=== PATIENT | male | born 1950 | race Caucasian/White ===

== ENCOUNTER 2016-12-04 15:08 | Emergency (ER) | payer BC, MEDICARE ==
[~2016-12-04] VITALS: Ht 188 cm; Wt 129.3 kg
[2016-12-04] MEDS ORDERED: TETANUS,DIPTH,PERTUSS P/F (BOOSTRIX) 0.5 ML VIAL IM STA (15:33)
--- NOTE | 2016-12-04 15:39 | ED General ---
General Chief Complaint: Laceration Stated Complaint: L HAND FINGER LAC Nursing Triage Note: PT STATES HE WAS CUTTING CANTELOPE AND CUT THE TIP OF HIS L MIDDLE AND RING FINER Nursing Sepsis Screen: No Definite Risk Source of Information: Patient Exam Limitations: No Limitations History of Present Illness Time Seen by Provider: 15:26 Initial Comments 66-year-old male patient presents to the emergency Department with reports of cutting his left third and fourth fingers with a knife while cutting cantaloupe. Location Injury Occurred: home Timing/Duration: 1/2 Hour Allergies and Home Medications Allergies Coded Allergies: Acetaminophen (Unverified Adverse Reaction, Unknown, 03/11/11) oxycodone HCl (Unverified Adverse Reaction, Unknown, 03/11/11) Uncoded Allergies: DARVOCET (Adverse Reaction, Unknown, 03/11/11) Constitutional: no symptoms reported Musculoskeletal: No joint pain, No joint swelling Skin: see HPI Psychiatric/Neurological: Denies Numbness, Denies Paresthesia, Denies Tingling , Denies Weakness All Other Systems Reviewed Negative Unless Noted: Yes (Negative excepted noted.) Past Qnclbuh-Lvflpi-Cnhpgk Hx Patient Social History Alcohol Use: Denies Use Recreational Drug Use: No Smoking Status: Never a Smoker Recent Foreign Travel: No Contact w/Someone Who Travel: No Recent Infectious Disease Expo: No Recent Hopitalizations: No Immunizations Up To Date Tetanus Booster (TDap): More than 5yrs Seasonal Allergies Seasonal Allergies: No Surgeries HX Surgeries: Yes Surgeries: Orthopedic Respiratory Hx Respiratory Disorders: No Cardiovascular Hx Cardiac Disorders: No Neurological Hx Neurological Disorders: No Gastrointestinal Hx Gastrointestinal Disorders: No Musculoskeletal Hx Musculoskeletal Disorders: No HEENT HX ENT Disorders: Yes HEENT Disorders: Glaucoma Reviewed Nursing Assessment Reviewed/Agree w Nursing PMH: Yes Family Medical History Significant Family History: No Pertinent Family Hx Physical Exam Vital Signs Vital Sign - Last 12Hours 12/04/16 12/04/16 15:24 16:02 Temp 98.1 Pulse 118 Resp 18 B/P (MAP) 149/100 Pulse Ox 99 Capillary Refill : Less Than 3 Seconds General Appearance: No Apparent Distress, WD/WN Cardiovascular: Normal Peripheral Pulses Extremity: Normal Capillary Refill, Normal Range of Motion, Non Tender, Other ( superficial skin avulsion of the left 3rd and 4th distal hogan fingers. small arterial bleed noted of the left distal 3rd finger.) Neurologic/Psychiatric: Alert, Oriented x3, No Motor/Sensory Deficits, Normal Mood/Affect Skin: Normal Color, Warm/Dry, Other (superficial skin avulsion of the left 3rd and 4th distal hogan fingers. small arterial bleed noted of the left distal 3rd finger.) Progress/Results/Core Measures Results/Orders My Orders Orders - MACRINA NAVAS Dipht,Pertuss(Acell),Tet Adult (Boostrix (12/04/16 15:33) Vital Signs/I&O Vital Sign - Last 12Hours 12/04/16 12/04/16 15:24 16:02 Temp 98.1 98.1 Pulse 118 118 Resp 18 18 B/P (MAP) 149/100 Pulse Ox 99 Blood Pressure Mean: 116 Departure Communication Progress Notes Patient seen and evaluated. Small flap of skin debrided from the left fourth finger. Left third finger cauterized with silver nitrate to obtain hemostasis. Finger dressed with Triple Antibiotic ointment, Adaptic, 2 x 2 gauze, and tube gauze. Impression Impression: Primary Impression: Avulsion of skin of finger Qualified Codes: S61.209A - Unspecified open wound of unspecified finger without damage to nail, initial encounter Additional Impression: Avulsion of skin of middle finger Qualified Codes: S61.208A - Unspecified open wound of other finger without damage to nail, initial encounter Disposition: 01 HOME, SELF-CARE Condition: Improved Departure-Patient Inst. Decision time for Depature: 15:37 Referrals: AMADEO BEARD MD (PCP/Family) Primary Care Physician Patient Instructions: SKIN AVULSION Add. Discharge Instructions: All discharge instructions reviewed with patient and/or family. Voiced understanding. Continue usual home medications. Ibuprofen 800 mg by mouth every 8 hours as needed for pain. Elevate the left hand on pillows. Ice pack for 20 minute intervals as needed. Change dressing tomorrow morning. If needed you may use peroxide to loosen the dressing. Immediately rinse the hand with soap and water. Shower with antibacterial soap. Apply triple antibiotic ointment twice daily for 3 days and cover with a bandage. Follow-up with Dr. Beard is outpatient for a recheck if needed. Return to the emergency department for worsened pain, redness, fever, drainage, or any other concerns. MACRINA NAVAS Dec 04, 2016 15:39
[2016-12-04 16:02] VITALS: BP 149/100
--- OUTSIDE RECORDS SUMMARY | 2016-12-06 11:55 | XMS REPORT | Continuity of Care Document ---
Author Author [facility] Organization [facility] Address Unknown Phone Unavailable Allergies Active Description Code Type Severity Reaction Onset Reported/Identified Relationship to Patient Clinical Status Yes acetaminophen [id number] Drug Allergy Unknown N/A 03/11/2011 Yes DARVOCET DARVOCET Unknown N/A 03/11/2011 Yes oxycodone HCl [id number] Drug Allergy Unknown N/A 03/11/2011 Medications Problems Date Dx Coded Attending Type Code Diagnosis Diagnosed By 06/23/2014 AMADEO JAEGER MD R Ot 562.10 06/23/2014 MIL MARTIN, AMADEO R Ot 789.03 06/26/2014 AMADEO JAEGER MD R Ot 562.10 06/26/2014 MIL MARTIN AMADEO R Ot 789.03 06/26/2014 MIL MARTIN, AMADEO R Ot 781.99 06/26/2014 AMADEO JAEGER MD R Ot 786.2 07/17/2014 AMADEO JAEGER MD R Ot 781.99 07/17/2014 MIL MARTIN AMADEO R Ot 786.2 Procedures Results Encounters ACCT No. Visit Date/Time Discharge Status Pt. Type Provider Facility Loc./Unit Complaint [id number] 06/23/2014 14:15:00 2014 23:59:59 CLS Outpatient AMADEO JAEGER MD [facility] RAD [id number] 09/24/2013 08:53:00 2013 23:59:59 CLS Outpatient AMADEO JAEGER MD [facility] RAD
== END 2016-12-04 16:11 | disposition home or self-care (01) ==
LOC: EDUNIT# 15:08 → ER 15:10
DX: S61.213A Laceration without foreign body of left middle finger without damage to nail, initial encounter; S61.225A Laceration with foreign body of left ring finger without damage to nail, initial encounter; Z98.890 Other specified postprocedural states; W26.9XXA Contact with unspecified sharp object(s), initial encounter
CPT/HCPCS: 90471; 90715

== ENCOUNTER 2016-12-06 11:49 | Emergency (ER) | payer BC ==
[~2016-12-06] VITALS: Ht 188 cm; Wt 129.3 kg
--- NOTE | 2016-12-06 12:14 | ED Suture Removal/Wound Check ---
Suture/Wound Re-check Suture Removal/Wound Recheck : Progress Time seen my provider: 1215 Patient presents to the emergency department for wound recheck as instructed. Patient denies any new complaints or needs. Physical Exam Vital Signs Vital Sign - Last 12Hours 12/06/16 11:55 Pulse 77 Resp 18 B/P (MAP) 157/106 Pulse Ox 96 Capillary Refill : General Appearance: WD/WN, no apparent distress Extremities: normal range of motion, other (good granulation noted of the right third and fourth distal finger wounds without evidence of erythema, warmth , or drainage. No evidence of swelling. soft tissue tenderness noted.) Skin: normal color, warm/dry, other (good granulation noted of the right third and fourth distal finger wounds without evidence of erythema, warmth, or drainage. No evidence of swelling.) Skin Problem Location: other (3rd and 4th fingers) Departure Communication Progress Notes Patient seen and evaluated. Continue all usual home medications. Discharge to home. Impression Impression: Primary Impression: Encounter for wound re-check Disposition: HOME, SELF-CARE Condition: Improved Departure-Patient Inst. Decision time for Depature: 12:31 Referrals: AMADEO JAEGER MD (PCP/Family) Primary Care Physician Patient Instructions: Wound Care (DC) Add. Discharge Instructions: All discharge instructions reviewed with patient and/or family. Voiced understanding. Continue usual home medications. Shower with antibacterial soap. Apply triple antibiotic ointment twice daily for 3 days. Finger splints as instructed. Follow-up with Dr. Jaeger as an outpatient if needed. Return to the emergency department for increased pain, redness, drainage, fever, or any other concerns. MACRINA NAVAS Dec 06, 2016 12:14
[2016-12-06 12:30] VITALS: BP 157/106
--- OUTSIDE RECORDS SUMMARY | 2016-12-06 20:29 | XMS REPORT | Continuity of Care Document ---
Author Author [facility] Organization [facility] Address Unknown Phone Unavailable Allergies Active Description Code Type Severity Reaction Onset Reported/Identified Relationship to Patient Clinical Status Yes acetaminophen [id number] Drug Allergy Unknown N/A 03/11/2011 Yes DARVOCET DARVOCET Unknown N/A 03/11/2011 Yes oxycodone HCl [id number] Drug Allergy Unknown N/A 03/11/2011 Medications Problems [...] Status Pt. Type Provider Facility Loc./Unit Complaint [id number] 06/23/2014 14:15:00 2014 23:59:59 CLS Outpatient AMADEO JAEGER MD [facility] RAD [id number] 09/24/2013 08:53:00 2013 23:59:59 CLS Outpatient AMADEO JAEGER MD [facility] RAD
== END 2016-12-06 12:35 | disposition home or self-care (01) ==
LOC: EDUNIT# 11:49 → ER 11:50
DX: S61.202D Unspecified open wound of right middle finger without damage to nail, subsequent encounter (principal); S61.204D Unspecified open wound of right ring finger without damage to nail, subsequent encounter; X58.XXXD Exposure to other specified factors, subsequent encounter